=== PATIENT | male | born 1945 | race Caucasian/White ===

== ENCOUNTER 2018-10-11 18:52 | Inpatient (IN) | payer MEDICARE ==
[~2018-10-11] VITALS: Ht 180.3 cm; Wt 95.3 kg
--- NOTE | 2018-10-11 18:55 | NUR ---
ERNIE MORGAN, PT UNABLE TO FOLLOW COMMANDS. ASSISTING WITH UNDRESSING, BED BUG SEEN ON PT'S SHIRT. BEDBUG OBTAINED, PUT IN SPECIMEN CONTAINER. PT AND ROOMMATE STATE PROBLEMS WITH BEDBUGS AND MICE IN THEIR APARTMENT. ISOLATION CART PLACED AT DOORWAY, SHEETS UNDER DOOR.
[2018-10-11] MEDS ORDERED: ACETAMINOPHEN 500 MG TABLET ONE (18:59)
[2018-10-11] MEDS ORDERED: SODIUM CHLORIDE 0.9% 1,000ML IVBOLUS ONE ×2 (19:00→21:00)
[2018-10-11] MEDS ORDERED: ACETAMINOPHEN 500 MG TABLET PO ONE (19:00)
[2018-10-11] MEDS ORDERED: VANCOMYCIN PER PHARMACY IV ONE (19:00)
--- NOTE | 2018-10-11 19:00 | NUR ---
PT UNDRESSED, PLACED IN GOWN. PT INCONTINENT OF URINE AND LOOSE STOOL. PT DENIES HX OF SUCH, STATES TREMORS, GENERALIZED WEAKNESS STARTED AT 1700 TODAY. PT ON HEART MONITOR, BP CUFF, PULSE OX IN PLACE. EKG COMPLETED AT BS. TYLENOL GIVEN PO FOR FEVER. PT A/OX4 AT THIS TIME, FOLLOWING COMMANDS AT THIS TIME.
[2018-10-11] MEDS ORDERED: LOVA20TA2 PO (19:10)
[2018-10-11] MEDS ORDERED: AMLO10TA8 PO (19:10)
[2018-10-11] MEDS ORDERED: LOSA100T14 PO (19:10)
[2018-10-11] MEDS ORDERED: PIPERACILLIN/TAZO/PMX 3.375GM 50 ML ONE (19:12)
[2018-10-11] MEDS: PIPERACILLIN/TAZO/PMX 3.375GM 50 ML IVPB ONE ×2 (19:24→20:27)
[2018-10-11 19:25] LABS: MEAN CORPUSCULAR HEMOGLOBIN 30.2 pg (27.5-34.5); MEAN CORPUSCULAR HGB CONC 33.5 g/dL (33.2-36.2); MEAN CORPUSCULAR VOLUME 90.2 fL (81-97); MEAN PLATELET VOLUME 7.7 fL (7.4-10.4); PLATELET COUNT 182 x10^3/uL (130-400); RED BLOOD COUNT 4.73 x10^6/uL (4.38-5.82); RED CELL DISTRIBUTION WIDTH 13.4 % (9.4-14.8)
--- NOTE | 2018-10-11 19:25 | NUR ---
IV ANTIBIOTIC INFUSING AFTER BC X 2 DRAWN BY LAB. PT STATES HE'S FEELING BETTER. VS IMPROVED AT THIS TIME. Addendum: 10/11/18 at 1941 by SHANIQUA PT STATES OTHER ALLERGY BESIDES INDERAL. STATES HE HAD HIVES WITH PCN ALLERGY. ZOSYN INFUSION NOT GIVEN AND ERP NOTIFIED OF NEW ALLERGY. Addendum: 10/11/18 at 1954 by SHANIQUA Amendment undone in EDM - 10/11/18 at 1955 by SHANIQUA PT REMEMBERED PENICILLIN ALLERGY PRIOR TO INFUSION OF ZOSYN. ERP NOTIFIED OF UPDATED ALLERGIES.
[2018-10-11] MEDS ORDERED: VANCOMYCIN 2,000 MG in SODIUM CHLORIDE 0.9% 500 ML IV ONE (19:30)
[2018-10-11 19:33] LABS: ALANINE AMINOTRANSFERASE 25 U/L (12-78); ALBUMIN 3.6 g/dL (3.4-5.0); ANION GAP 12 mmol/L (5-15); CALCIUM 8.2 mg/dL (8.5-10.1); CHLORIDE 108 mmol/L (98-107)
[2018-10-11 19:38] LABS: ALKALINE PHOSPHATASE 82 U/L (45-117); BILIRUBIN,TOTAL 0.8 mg/dL (0.2-1.0); CREATININE 1.15 mg/dL (0.7-1.3); TOTAL PROTEIN 7.1 g/dL (6.4-8.2); TROPONIN I < 0.015 ng/mL (0.000-0.045)
--- NOTE | 2018-10-11 19:44 | NUR ---
VANCOMYCIN INFUSING PER ERP ORDER. VS UPDATED IN COMPUTER.
[2018-10-11 19:49] LABS: MICROSCOPIC AUTO
[2018-10-11 19:51] LABS: CULTURE INDICATED? YES
[2018-10-11 20:07] LABS: BASOPHILS % (AUTO) 0 % (0-1); EOSINOPHILS # (AUTO) 0.01 x10^3/uL (0-0.4); EOSINOPHILS % (AUTO) 0 % (1-7); LYMPHOCYTES # (AUTO) 0.19 x10^3/uL (1-3.4); LYMPHOCYTES % (AUTO) 7 % (22-44); MD SCAN; MONOCYTES # (AUTO) 0.01 x10^3/uL (0.2-0.8); MONOCYTES % (AUTO) 0 % (2-9); NEUTROPHILS # (AUTO) 2.64 x10^3/uL (1.8-6.8); NEUTROPHILS % (AUTO) 93 % (42-75)
[2018-10-11] MEDS ORDERED: CEFTRIAXONE PMX 1GM/50ML 50 ML ONE (20:28)
[2018-10-11] MEDS ORDERED: CEFTRIAXONE PMX 1GM/50ML 50 ML IV ONE (20:30)
--- NOTE | 2018-10-11 21:45 | NUR ---
PT RESTING ON HERMELINDA, ROOM MATE AT BEDSIDE. PT AWARE HE IS TO BE ADMITTED AT THIS TIME.
[2018-10-11] MEDS ORDERED: ACETAMINOPHEN 325 MG TABLET PO PRN (23:00)
[2018-10-11] MEDS ORDERED: DOCUSATE 100 MG CAPSULE PO PRN (23:00)
[2018-10-11] MEDS ORDERED: IBUPROFEN 600 MG TABLET PO PRN (23:00)
[2018-10-11] MEDS ORDERED: VANCOMYCIN PER PHARMACY MC PRN (23:00)
--- NOTE | 2018-10-11 23:04 | NUR ---
PT SITTING UP IN CHAIR, LINENS CHANGED AND URINAL PROVIDED AT THIS TIME.
--- NOTE | 2018-10-12 00:36 | NUR ---
PT RESTING ON GURNEY, CALL LIGHT AT BEDSIDE. VSS AND WILL CONT TO MONITOR. PT AWARE STILL AWAITING BED FOR ADMIT.
--- NOTE | 2018-10-12 02:20 | NUR ---
REPORT OF PT FROM KAM IBARRA AND ASSUMING CARE OF PT
--- NOTE | 2018-10-12 03:14 | NUR ---
PT ASLEEP IN [facility] AT THIS TIME;
--- NOTE | 2018-10-12 03:27 | NUR ---
report of pt to larry ramirez. all questions answered. pt belongings double bagged for transport from er to the floor.
[2018-10-12] MEDS: SODIUM CHLORIDE 0.9% 1,000 ML IV SCH ×2 (04:00→16:30)
[2018-10-12 04:20] VITALS: BP 138/74
[2018-10-12] MEDS ORDERED: PHARMACOKINETIC MONITORING MC PRN (04:30)
[2018-10-12 06:18] LABS: MEAN CORPUSCULAR HEMOGLOBIN 30.1 pg (27.5-34.5); MEAN CORPUSCULAR HGB CONC 32.7 g/dL (33.2-36.2); MEAN PLATELET VOLUME 8.2 fL (7.4-10.4); PLATELET COUNT 160 x10^3/uL (130-400); RED CELL DISTRIBUTION WIDTH 13.9 % (9.4-14.8)
[2018-10-12 06:36] LABS: MD YES
[2018-10-12 06:38] LABS: BANDS%(MANUAL) 27 % (0-7); EOS#(MANUAL) 0.15 x10^3/uL (0.0-0.4); EOS% (MANUAL) 1 % (1-7); LYMPHS% (MANUAL) 2 % (22-44); METAMYELOCYTES# (MANUAL) 0.15 x10^3/uL (0-0); METAMYELOCYTES% (MANUAL) 1 % (0-1); MONOS#(MANUAL) 0.44 x10^3/uL (0.3-2.7); MONOS% (MANUAL) 3 % (2-9); SEG#(MANUAL) 9.77 x10^3/uL (1.8-6.8); SEGS% (MANUAL) 66 % (42-75)
[2018-10-12 06:39] LABS: <RBC MORPHOLOGY> NORMAL
[2018-10-12 06:40] LABS: <PLATELET ESTIMATE> ADEQUATE; LARGE PLATELETS 1+
[2018-10-12 08:05] VITALS: BP 138/82
[2018-10-12] MEDS ORDERED: OMNIPAQUE 350 MG/ML, 100ML BOTTLE ONE (10:49)
[2018-10-12] MEDS: LOSARTAN 50MG TABLET PO SCH (12:10)
[2018-10-12] MEDS: AMLODIPINE 10 MG TAB PO SCH (12:10)
[2018-10-12 13:01] VITALS: BP 126/69
[2018-10-12] MEDS ORDERED: VANCOMYCIN 1,900 MG in SODIUM CHLORIDE 0.9% 250 ML IV SCH (14:00)
[2018-10-12] MEDS ORDERED: CEFTRIAXONE PMX 1GM/50ML 50 ML IV SCH (19:00)
[2018-10-12 19:50] VITALS: BP 130/71
[2018-10-12] MEDS: LOVASTATIN 20 MG TABLET PO SCH (20:13)
[2018-10-12 23:11] LABS: CLOSTRIDIUM DIFFICILE ANTIGEN NEGATIVE; CLOSTRIDIUM DIFFICILE TOXIN NEGATIVE (Negative)
[2018-10-13 01:22] VITALS: BP 145/72
[2018-10-13] MEDS: SODIUM CHLORIDE 0.9% 1,000 ML IV SCH ×3 (02:49→23:22)
[2018-10-13 06:18] LABS: MEAN CORPUSCULAR HEMOGLOBIN 30.3 pg (27.5-34.5); MEAN CORPUSCULAR VOLUME 91.8 fL (81-97); MEAN PLATELET VOLUME 8.5 fL (7.4-10.4); PLATELET COUNT 143 x10^3/uL (130-400); RED BLOOD COUNT 4.34 x10^6/uL (4.38-5.82); RED CELL DISTRIBUTION WIDTH 13.9 % (9.4-14.8)
[2018-10-13 06:29] LABS: ANION GAP 7 mmol/L (5-15); CALCIUM 8.2 mg/dL (8.5-10.1); CHLORIDE 112 mmol/L (98-107)
[2018-10-13 06:30] LABS: CREATININE 0.82 mg/dL (0.7-1.3)
[2018-10-13 06:48] LABS: BASOPHILS % (AUTO) 0 % (0-1); EOSINOPHILS # (AUTO) 0.13 x10^3/uL (0-0.4); EOSINOPHILS % (AUTO) 1 % (1-7); LYMPHOCYTES % (AUTO) 6 % (22-44); MD SCAN; MONOCYTES # (AUTO) 0.49 x10^3/uL (0.2-0.8); MONOCYTES % (AUTO) 5 % (2-9); NEUTROPHILS # (AUTO) 9.75 x10^3/uL (1.8-6.8); NEUTROPHILS % (AUTO) 89 % (42-75)
[2018-10-13 08:25] VITALS: BP 134/78
[2018-10-13] MEDS: AMLODIPINE 10 MG TAB PO SCH (10:40)
[2018-10-13] MEDS: LOSARTAN 50MG TABLET PO SCH (10:40)
[2018-10-13] MEDS: CEFTRIAXONE PMX 2GM/50ML 50 ML IV SCH (10:40)
[2018-10-13 13:18] VITALS: BP 126/78
[2018-10-13 20:10] VITALS: BP 130/69
[2018-10-13] MEDS: LOVASTATIN 20 MG TABLET PO SCH (20:40)
[2018-10-14 00:51] VITALS: BP 137/77
[2018-10-14 07:44] VITALS: BP 135/57
[2018-10-14] MEDS: AMLODIPINE 10 MG TAB PO SCH (09:17)
[2018-10-14] MEDS: LOSARTAN 50MG TABLET PO SCH (09:17)
[2018-10-14] MEDS: SODIUM CHLORIDE 0.9% 1,000 ML IV SCH (09:18)
[2018-10-14] MEDS: CEFTRIAXONE PMX 2GM/50ML 50 ML IV SCH (10:46)
[2018-10-14] MEDS ORDERED: SULF1TAB24 PO (12:17)
[2018-10-14 13:33] VITALS: BP 153/74
== END 2018-10-14 15:30 | disposition home or self-care (01) | DRG 872 ==
LOC: ED 20:40 → EDIP 22:07 → 4WST 10-12 03:55 → DCLOUNGE 10-14 15:12
PROVIDERS: ADMIT Family Medicine; ATTEND Family Medicine
DX: A41.50 Gram-negative sepsis, unspecified (principal); N12 Tubulo-interstitial nephritis, not specified as acute or chronic; B85.2 Pediculosis, unspecified; B96.1 Klebsiella pneumoniae [K. pneumoniae] as the cause of diseases classified elsewhere; D63.8 Anemia in other chronic diseases classified elsewhere; E78.00 Pure hypercholesterolemia, unspecified; E78.5 Hyperlipidemia, unspecified; F31.9 Bipolar disorder, unspecified; I10 Essential (primary) hypertension; K40.90 Unilateral inguinal hernia, without obstruction or gangrene, not specified as recurrent; N20.0 Calculus of kidney; N28.1 Cyst of kidney, acquired; Z88.0 Allergy status to penicillin; Z88.8 Allergy status to other drugs, medicaments and biological substances
CPT/HCPCS: 36415; 71045; 74177; 80048; 80053; 81001; 83605; 84145; 84484; 85025; 86592; 86704; 86706; 86803; 87040; 87077; 87086; 87186; 87324; 87340; 87806; 93005; 96361; 96374; 96375; 96376; G0378; J0696; J2543; J3370; Q9967; G0475; J7030; J7040